=== PATIENT | female | born 1985 | race Caucasian/White ===

== ENCOUNTER 2017-12-02 17:55 | Emergency (ER) | payer SELFPAY ==
[~2017-12-02] VITALS: Ht 162.6 cm; Wt 56.7 kg
--- NOTE | 2017-12-02 18:05 | NUR ---
[facility]ART FROM A [employer] DT WITNESSED SYNCOPAL EPISODE. PATIENT RECEIVED AWAKE AND ALERT. APPEARS IN NO APPRENT DISTRESS. RESPIRATION EVEN AND UNLABORED. SKIN IS WARM TO TOUCH AND NON DIAPHORETIC. PT IS AFEBRILE IV ION LFA 20 NOTED.
--- NOTE | 2017-12-02 18:14 | NUR ---
MD ROUSE AT BEDSIDE
[2017-12-02] MEDS ORDERED: IV NS 0.9% 1,000 ML BAG IV ONE (18:30)
[2017-12-02 18:31] LABS: BASOPHILS % (AUTO) 0.3 % (0.0-2.0); EOSINOPHILS % (AUTO) 0.8 % (0.0-6.0); HEMATOCRIT 38 % (33-45); HEMOGLOBIN 13.3 g/dL (11.5-14.8); LYMPHOCYTES # (AUTO) 0.8 /CMM (0.8-4.8); LYMPHOCYTES % (AUTO) 19.1 % (20.0-44.0); MEAN CORPUSCULAR HEMOGLOBIN 33 PG (26.0-33.0); MEAN CORPUSCULAR HGB CONC 35 g/dl (31.0-36.0); MEAN CORPUSCULAR VOLUME 94 fL (82-100); MONOCYTES # (AUTO) 0.4 /CMM (0.1-1.30); MONOCYTES % (AUTO) 9.5 % (2.0-12.0); NEUTROPHILS % (AUTO) 70.3 % (43.0-81.0); PLATELET COUNT (AUTO) 110 /CMM (150-450); RDW COEFFICIENT OF VARIATION 17.2 (11.5-15.0); RED BLOOD CELL COUNT(AUTO) 4.05 MIL/uL (4.0-5.2); WHITE BLOOD COUNT (AUTO) 4.3 K/uL (4.3-11.0)
[2017-12-02 18:45] LABS: CALCIUM, SERUM 9.7 mg/dL (8.5-10.1); CREATININE 0.9 mg/dL (0.6-1.3); POTASSIUM 3.2 mmol/L (3.5-5.1)
--- NOTE | 2017-12-02 19:00 | NUR ---
PT TO CT
--- NOTE | 2017-12-02 19:39 | NUR ---
IV removed. Catheter intact and site benign. Pressure and 4x4 applied to site. No bleeding noted. Patient discharged to home in stable condition. Written and verbal after care instructions given. Patient verbalizes understanding of instruction. ambulatory with a steady gait noted. pt [id number] no acute distress noted, resp even and unlabored.
[2017-12-02 19:43] VITALS: BP 127/75
== END 2017-12-02 19:45 | disposition home or self-care (01) ==
LOC: ER 17:57
DX: R55 Syncope and collapse (principal); G47.00 Insomnia, unspecified
CPT/HCPCS: 36415; 70450; 80048; 84703; 85025; 96360; 99285; A4606; Z7610